=== PATIENT | female | born 1935 | race Caucasian/White ===

== ENCOUNTER 2017-04-05 08:43 | Inpatient (IN) ==
[2017-04-05] MEDS ORDERED: TYLENOL PR ONE (09:12)
[2017-04-05 09:23] LABS: ALLEN TEST YES; BE 4.9 mmoll (-3.0-3.0); BLOOD TYPE ARTERIAL; DRAW SITE R RADIAL; METHB 1.3 % (0.0-1.5); O2(CT) 16.6 mL/dL (15.0-23.0); PCO2(98.6) 41 mmHg (35-45); PO2(98.6) 52 mmHg (60-100); SAMPLE BLOOD; SAO2 93.1 % (95.0-100.0); THB 13.2 g/dL (11.5-17.4); pH(98.6) 7.46 (7.35-7.45)
[2017-04-05 09:24] LABS: MODALITY ROOM AIR
[2017-04-05 09:37] LABS: MANUAL DIFF NEEDED? NO
[2017-04-05 09:42] LABS: BASO% 0.1 % (0.0-0.8); EOS# 0.06 X1000 (0.0-0.7); EOS% 0.7 % (0.0-10.0); HEMATOCRIT 42.6 % (37.0-47.0); HEMOGLOBIN 13.4 g/dL (12.0-16.0); LYMPH# 1.08 X1000 (1.2-3.4); LYMPH% 13.4 % (20.5-51.1); MCHC 31.5 g/dL (33-37); MCV 92.2 FL (81-99); MONO# 0.53 X1000 (0.11-0.59); MONO% 6.6 % (1.7-9.3); MPV 10.7 FL (7.4-10.4); NEUT% 79.2 % (42.2-75.2); PLT 166 X1000 (130-400); RBC 4.62 XMIL (4.2-5.4)
[2017-04-05] MEDS ORDERED: ROCEPHIN 2 GM in NS 50 ML IV ONE (09:46)
[2017-04-05 09:58] LABS: URINE CULTURE NEEDED? NO; URINE MICRO REVIEW NEEDED? NO; URINE SOURCE CATH
[2017-04-05 10:05] LABS: AGAP 13; ALBUMIN 3.3 g/dL (3.5-5.0); ALKALINE PHOSPHATASE 104 U/L (32-104); BUN 23 mg/dL (8-22); CALCIUM 8.8 mg/dL (8.8-10.2); CHLORIDE 103 mmol/L (98-107); CK PROFILE 14 U/L (24-173); COSMO 291; GOT 19 U/L (10-30); GPT 16 U/L (10-36); MAGNESIUM 1.8 mg/dL (1.5-2.7); POTASSIUM 4.5 mmol/L (3.5-5.1); SODIUM 144 mmol/L (136-145); TCO2 28 mmol/L (25-35); TOTAL BILIRUBIN 0.31 mg/dL (0.20-1.00); TOTAL PROTEIN 6.9 g/dL (6.3-8.3)
[2017-04-05 10:06] LABS: INR 1.02; PROTIME 10.7 Seconds (9.2-11.7); PTT 29.4 Seconds (22.0-36.0)
[2017-04-05 10:42] LABS: BILIRUBIN URINE NEGATIVE (NEGATIVE); BLOOD URINE NEGATIVE (NEGATIVE); COLOR YELLOW; GLUCOSE URINE NEGATIVE (NEGATIVE); LEUKOCYTES URINE NEGATIVE (NEGATIVE); NITRITE URINE NEGATIVE (NEGATIVE); PH URINE 6.5; PROTEIN URINE NEGATIVE (NEGATIVE); SP GRAVITY URINE 1.024; TURBIDITY URINE CLEAR (CLEAR); UROBILINOGEN URINE NORMAL (NORMAL)
[2017-04-05 10:43] LABS: UR EPITHELIAL CELLS <10 /HPF (<10); URINE BACTERIA NEGATIVE /HPF; URINE RBC <10 /HPF (<10); URINE WBC <10 /HPF (<10)
[2017-04-05] MEDS ORDERED: DUONEB (A & A) INH PRN (11:05)
[2017-04-05] MEDS: ZOSYN 3.375 GM in NS 50 ML IV SCH ×2 (11:15→17:35)
[2017-04-05] MEDS ORDERED: VANCOMYCIN IV PER PHARMACY MISC SCH (11:15)
[2017-04-05] MEDS: DUONEB (A & A) INH SCH (11:30)
[2017-04-05] MEDS ORDERED: VANCOMYCIN 1.5 GM in NS 250 ML IV ONE (13:00)
[2017-04-05] MEDS ORDERED: VITAMIN D PO ONE (13:26)
[2017-04-05] MEDS ORDERED: LASIX IV ONE (13:28)
[2017-04-05] MEDS ORDERED: SODIUM CHLORIDE 0.9% INJ SCH (13:45)
[2017-04-05] MEDS: NS 1,000 ML IV SCH (16:04)
[2017-04-05] MEDS: DILAUDID IV PRN ×2 (16:54→20:06)
[2017-04-06] MEDS: ZOSYN 3.375 GM in NS 50 ML IV SCH ×5 (00:20→22:21)
[2017-04-06 06:37] LABS: MANUAL DIFF NEEDED? NO
[2017-04-06] MEDS: PROTONIX IV SCH (06:41)
[2017-04-06] MEDS: NS 1,000 ML IV SCH (06:41)
[2017-04-06 06:44] LABS: BASO% 0.1 % (0.0-0.8); EOS# 0.01 X1000 (0.0-0.7); EOS% 0.1 % (0.0-10.0); HEMATOCRIT 41.2 % (37.0-47.0); HEMOGLOBIN 12.9 g/dL (12.0-16.0); LYMPH# 0.89 X1000 (1.2-3.4); LYMPH% 11.6 % (20.5-51.1); MCH 28.9 PG (27-31); MCHC 31.3 g/dL (33-37); MCV 92.4 FL (81-99); MONO# 0.58 X1000 (0.11-0.59); MONO% 7.6 % (1.7-9.3); MPV 10.9 FL (7.4-10.4); NEUT% 80.6 % (42.2-75.2); PLT 166 X1000 (130-400); RBC 4.46 XMIL (4.2-5.4)
[2017-04-06 07:08] LABS: CALCIUM 9.1 mg/dL (8.8-10.2); POTASSIUM 4.2 mmol/L (3.5-5.1)
[2017-04-06] MEDS: MUCOMYST 20% INH SCH ×2 (12:40→19:27)
[2017-04-06] MEDS: DUONEB (A & A) INH SCH ×5 (12:40→22:59)
[2017-04-06] MEDS: DILAUDID IV PRN ×2 (13:16→22:21)
[2017-04-06] MEDS: D5W 1,000 ML IV SCH (13:41)
[2017-04-07] MEDS ORDERED: VANCOMYCIN 1.35 GM in NS 250 ML IV SCH (01:00)
[2017-04-07] MEDS: D5W 1,000 ML IV SCH (03:10)
[2017-04-07] MEDS: DUONEB (A & A) INH SCH ×3 (03:26→11:32)
[2017-04-07] MEDS ORDERED: VANCOMYCIN 1 GM/NS 1 GM/250 ML IVPB IV SCH (04:00)
[2017-04-07] MEDS: ZOSYN 3.375 GM in NS 50 ML IV SCH (04:28)
[2017-04-07 04:47] LABS: ALLEN TEST YES; BLOOD TYPE ARTERIAL; DRAW SITE R RADIAL; METHB 1.3 % (0.0-1.5); MODALITY CANNULA; O2(CT) 14.7 mL/dL (15.0-23.0); PCO2(98.6) 50 mmHg (35-45); PO2(98.6) 67 mmHg (60-100); SAMPLE BLOOD; SAO2 96.8 % (95.0-100.0); THB 11.1 g/dL (11.5-17.4); pH(98.6) 7.41 (7.35-7.45)
[2017-04-07 06:06] LABS: MANUAL DIFF NEEDED? NO
[2017-04-07 06:21] LABS: BASO% 0.1 % (0.0-0.8); EOS# 0.08 X1000 (0.0-0.7); EOS% 0.9 % (0.0-10.0); HEMATOCRIT 36.1 % (37.0-47.0); HEMOGLOBIN 11.2 g/dL (12.0-16.0); IMM GRAN# 0.03 X1000 (0.0-0.04); IMM GRAN% 0.3 % (0.0-0.5); LYMPH# 0.79 X1000 (1.2-3.4); LYMPH% 8.9 % (20.5-51.1); MCH 28.7 PG (27-31); MCV 92.6 FL (81-99); MONO# 0.81 X1000 (0.11-0.59); MONO% 9.2 % (1.7-9.3); NEUT% 80.6 % (42.2-75.2); PLT 169 X1000 (130-400)
[2017-04-07] MEDS: PROTONIX IV SCH (06:25)
[2017-04-07 06:42] LABS: CALCIUM 8.2 mg/dL (8.8-10.2); POTASSIUM 3.2 mmol/L (3.5-5.1)
[2017-04-07] MEDS: DILAUDID IV PRN ×6 (06:57→22:56)
[2017-04-07] MEDS ORDERED: POTASSIUM CHLORIDE 40 MEQ in NS 250 ML IV ONE (07:00)
[2017-04-07] MEDS: MUCOMYST 20% INH SCH (08:34)
[2017-04-07] MEDS: TRANSDERM-SCOP TD SCH (08:48)
[2017-04-07] MEDS ORDERED: LOVENOX SUBQ SCH (09:00)
[2017-04-07] MEDS: ATROPINE 1% OPHTH SOLN MISC PRN (23:08)
[2017-04-08] MEDS: DILAUDID IV PRN ×6 (03:45→22:24)
[2017-04-08] MEDS: ATROPINE 1% OPHTH SOLN MISC PRN ×2 (03:46→22:25)
[2017-04-09] MEDS: DILAUDID IV PRN ×12 (00:50→23:01)
[2017-04-09] MEDS: ATROPINE 1% OPHTH SOLN MISC PRN ×2 (03:48→06:54)
[2017-04-09] MEDS: ATROPINE 1% OPHTH SOLN SL PRN ×4 (08:46→14:35)
[2017-04-09] MEDS ORDERED: ATIVAN ONE (16:24)
[2017-04-09] MEDS: ATIVAN IV PRN (16:29)
[2017-04-10] MEDS: DILAUDID IV PRN ×11 (00:55→21:53)
[2017-04-10] MEDS: ATROPINE 1% OPHTH SOLN SL PRN ×6 (07:35→16:48)
[2017-04-10] MEDS: TRANSDERM-SCOP TD SCH (08:59)
[2017-04-11] MEDS: DILAUDID IV PRN ×14 (00:03→23:56)
[2017-04-11] MEDS: ATIVAN IV PRN ×9 (04:15→23:56)
[2017-04-11] MEDS: ATROPINE 1% OPHTH SOLN SL PRN ×3 (04:17→09:55)
[2017-04-12] MEDS: ATIVAN IV PRN ×9 (02:11→22:55)
[2017-04-12] MEDS: DILAUDID IV PRN ×9 (02:11→22:55)
[2017-04-12] MEDS ORDERED: ATROPINE 1% OPHTH SOLN SL PRN (14:48)
[2017-04-13] MEDS: ATIVAN IV PRN ×10 (01:38→22:46)
[2017-04-13] MEDS: DILAUDID IV PRN ×12 (01:39→23:45)
[2017-04-13] MEDS: TRANSDERM-SCOP TD SCH (09:01)
[2017-04-14] MEDS: DILAUDID IV PRN ×11 (00:15→13:51)
[2017-04-14] MEDS: ATIVAN IV PRN ×9 (00:15→13:51)
[2017-04-14 05:58] VITALS: BP 87/42
[2017-04-14] MEDS ORDERED: OFIRMEV 1000 MG/ISOTONIC SOLN 1,000 MG/100 ML BOTTLE IV PRN (13:46)
[2017-04-14] MEDS ORDERED: CALMOSEPTINE OINTMENT TOP ONE (14:39)
== END 2017-04-14 15:00 | disposition expired ==
LOC: SUATTDRO → ED 08:43 → 3N 15:19 → SUATTDRO 15:19 → 3N 15:26
PROVIDERS: ATTEND Internal Medicine